=== PATIENT | female | born 1985 | race Caucasian/White ===

== ENCOUNTER → 2024-12-28 07:45 | Outpatient (CLI) | payer OTHER, SELFPAY ==
--- NOTE | 2024-12-28 07:48 | DI.US.S_ITS ---
PROCEDURE: US PERIPH VENOUS LOW EXTREM RT INDICATIONS: superficial phlebitis TECHNIQUE: Real-time imaging, as well as color and pulse Doppler interrogation, were performed of the lower extremity deep veins from the inguinal ligament to the popliteal fossa, with documentation of the visualized calf veins. COMPARISON: None. FINDINGS: The common femoral, femoral, popliteal, and the visualized calf veins are normally compressible, and free of intraluminal thrombus. Color and pulse Doppler demonstrate normal phasic intraluminal flow. There is normal augmentation response to distal compression maneuver. Targeted ultrasound of the region of concern on the foot demonstrates superficial, patent vessels. IMPRESSION: No findings of lower extremity deep venous thrombosis. Targeted ultrasound of the region of concern on the right anterior foot demonstrates small, compressible vessels. Dictated by: Terrance Carr M.D. on 12/28/2024 at 13:08 Approved by: Terrance Carr M.D. on 12/28/2024 at 13:08
== END ==
LOC: US 07:46
PROVIDERS: PCP Physician Assistant; Referring Provider Physician Assistant; Visit Provider Physician Assistant
DX: M79.671 Pain in right foot (principal); I80.9 Phlebitis and thrombophlebitis of unspecified site
CPT/HCPCS: 93971

== ENCOUNTER → 2025-04-09 11:10 | Outpatient (CLI) | payer OTHER, SELFPAY ==
--- NOTE | 2025-04-09 11:43 | DI.MRI.S_ITS ---
PROCEDURE: MR LUMBAR SPINE WO CON INDICATIONS: H/O SPINAL NERVE INJURY TECHNIQUE: Noncontrast sagittal T1 spin echo and T2 fast echo, sagittal STIR, and T2 fast spin echo through the lumbar spine. In cases with scoliosis, additional coronal T2 fast spin echo may be performed. COMPARISON: None. FINDINGS: Image quality: Excellent. Alignment and Curvature: Mild dextrocurvature. Minimal retrolisthesis of L2 on L3, L3 on L4 and L5 on S1. Bone Marrow: Marrow is of normal overall signal. No acute vertebral body compression fractures. Spinal Cord: Conus medullaris terminates at the L1-L2 level. Visualized cord demonstrates normal signal and size. Paraspinous Soft Tissues: No paravertebral masses. T12-L1: Mild disc bulge and facet arthropathy. No central canal or neural foraminal stenosis. L1-L2: Facet arthropathy. No central canal or neural foraminal stenosis. L2-L3: Disc desiccation and mild height loss. Mild diffuse disc bulge. Facet arthropathy. No significant central canal or neural foraminal stenosis. L3-L4: Disc desiccation and mild disc bulge with tiny central disc protrusion. Facet arthropathy. Mild central canal stenosis. Mild bilateral neural foraminal stenosis. L4-L5: Disc desiccation and mild diffuse disc bulge. Facet arthropathy. No significant central canal or neural foraminal stenosis. L5-S1: Disc desiccation and moderate height loss. Diffuse disc bulge. Prior decompression. Facet arthropathy. No central canal stenosis. Right subarticular disc extrusion narrowing the right lateral recess with possible impingement the descending right S1 nerve root. Moderate bilateral neural foraminal stenosis. IMPRESSION: 1. Multilevel degenerative changes of the lumbar spine as described above. 2. Narrowing of the right lateral recess at L5-S1 with possible impingement of the descending right S1 nerve root. 3. Mild central canal stenosis at L3-L4. 4. Moderate bilateral neural foraminal stenosis at L5-S1. Dictated by: Severino Beaulieu M.D. on 04/11/2025 at 11:35 Approved by: Severino Beaulieu M.D. on 04/11/2025 at 11:38
== END ==
LOC: MRI 11:12
PROVIDERS: PCP Physician Assistant; Referring Provider Physician Assistant; Visit Provider Physician Assistant
DX: S34.21XD Injury of nerve root of lumbar spine, subsequent encounter (principal); M51.369 Other intervertebral disc degeneration, lumbar region without mention of lumbar back pain or lower extremity pain; M51.379 Other intervertebral disc degeneration, lumbosacral region without mention of lumbar back pain or lower extremity pain; M47.816 Spondylosis without myelopathy or radiculopathy, lumbar region; M47.817 Spondylosis without myelopathy or radiculopathy, lumbosacral region; M48.061 Spinal stenosis, lumbar region without neurogenic claudication; M48.07 Spinal stenosis, lumbosacral region; R29.818 Other symptoms and signs involving the nervous system; R32 Unspecified urinary incontinence; X58.XXXD Exposure to other specified factors, subsequent encounter; Z87.828 Personal history of other (healed) physical injury and trauma
CPT/HCPCS: 72148